=== PATIENT | female | born 1985 | race African-American/Black ===

== ENCOUNTER 2017-04-25 01:22 | Emergency (ER) | payer MEDICAID ==
[~2017-04-25] VITALS: Ht 162.6 cm; Wt 52.0 kg
[~2017-04-25 01:22] MED LIST: IRON; PRENATAL
[2017-04-25] MEDS ORDERED: KETOROLAC 30MG/ML VIAL IV STA (01:45)
[2017-04-25] MEDS ORDERED: SODIUM CHLORIDE 0.9% 1,000 ML IV ONE (01:45)
[2017-04-25] MEDS ORDERED: MORPHINE SULFATE 4 MG/ML CPJ (NOT FOR IM USE) IV STA (01:45)
[2017-04-25 02:10] LABS: BASOPHILS % 0.4 % (0.0-2.0); EOSINOPHILS % 1.3 % (0.0-5.0); HCG SCREEN NEGATIVE; HEMATOCRIT. 38.3 % (36.0-48.0); HEMOGLOBIN. 12.6 g/dL (12.0-16.0); LYMPHOCYTES % 29.1 % (20.0-50.0); MEAN CORPUSCULAR HEMOGLOBIN 31.4 pg (28.0-32.0); MEAN CORPUSCULAR VOLUME 95.2 fL (81.0-99.0); MEAN PLATELET VOLUME 9.8 fl (7.4-10.4); MONOCYTES % 7.6 % (2.0-8.0); NEUTROPHILS % 61.6 % (40.0-76.0); PLATELET 180 x1000/uL (130-400); RED BLOOD CELL COUNT 4.02 mill/uL (4.2-5.4); RED CELL DISTRIBUTION WIDTH 14.7 % (11.6-14.6)
[2017-04-25 02:11] LABS: CHLORIDE 104 mEq/L (98-107)
[2017-04-25 02:12] LABS: INR 1.3; PROTHROMBIN TIME 13.3 sec (9.4-11.6)
[2017-04-25] MEDS ORDERED: ONDANSETRON HCL 4MG/2ML VIAL IV ONE (02:15)
[2017-04-25 02:19] LABS: CARBON DIOXIDE 24 mEq/L (21-32)
[2017-04-25 02:41] LABS: CLARITY URINE CLEAR (CLEAR); COLOR URINE YELLOW (YELLOW); KETONES URINE 1+ (NEGATIVE); LEUKOCYTE ESTERASE URINE TRACE (NEGATIVE); NITRITE URINE NEGATIVE (NEGATIVE); OCCULT BLOOD URINE 2+ (NEGATIVE); PROTEIN URINE NEGATIVE (NEGATIVE); SPECIFIC GRAVITY URINE 1.029 (1.005-1.030)
[2017-04-25] MEDS ORDERED: CEFTRIAXONE 1 G PREMIX 50 ML IV SCH (03:30)
[2017-04-25 05:34] VITALS: BP 88/53
== END 2017-04-25 06:26 | disposition home or self-care (01) ==
LOC: ER 01:22
DX: N20.2 Calculus of kidney with calculus of ureter (principal); N39.0 Urinary tract infection, site not specified; F17.200 Nicotine dependence, unspecified, uncomplicated; F12.10 Cannabis abuse, uncomplicated
CPT/HCPCS: 36415; 71045; 74176; 80053; 81001; 83690; 84702; 84703; 85025; 85610; 96361; 96365; 96375; 99285; J0696; J1885; J2270; J2405; J7030

== ENCOUNTER 2017-04-27 01:35 | Emergency (ER) | payer MEDICAID ==
[~2017-04-27] VITALS: Ht 154.9 cm; Wt 54.5 kg
[2017-04-27] MEDS ORDERED: ONDANSETRON HCL 4MG/2ML VIAL IV STA (02:01)
[2017-04-27] MEDS ORDERED: KETOROLAC 30MG/ML VIAL IV STA (02:01)
[2017-04-27] MEDS ORDERED: SODIUM CHLORIDE 0.9% 1,000 ML IV ONE (02:01)
[2017-04-27 02:19] LABS: BASOPHILS % 0.2 % (0.0-2.0); EOSINOPHILS % 0.3 % (0.0-5.0); HEMATOCRIT. 32.6 % (36.0-48.0); LYMPHOCYTES % 9.3 % (20.0-50.0); MEAN CORPUSCULAR HEMOGLOBIN 31.7 pg (28.0-32.0); MONOCYTES % 6.5 % (2.0-8.0); NEUTROPHILS % 83.7 % (40.0-76.0); PLATELET 140 x1000/uL (130-400); RED BLOOD CELL COUNT 3.47 mill/uL (4.2-5.4); RED CELL DISTRIBUTION WIDTH 14.6 % (11.6-14.6)
[2017-04-27 02:22] LABS: CHLORIDE 107 mEq/L (98-107)
[2017-04-27 02:23] LABS: INR 1.1; PROTHROMBIN TIME 11.7 sec (9.4-11.6)
[2017-04-27 02:42] LABS: CLARITY URINE CLOUDY (CLEAR); COLOR URINE YELLOW (YELLOW); KETONES URINE 2+ (NEGATIVE); LEUKOCYTE ESTERASE URINE NEGATIVE (NEGATIVE); NITRITE URINE NEGATIVE (NEGATIVE); OCCULT BLOOD URINE NEGATIVE (NEGATIVE); PH URINE 7.5 (4.5-8.0); PROTEIN URINE NEGATIVE (NEGATIVE); SPECIFIC GRAVITY URINE 1.026 (1.005-1.030); UROBILINOGEN URINE 0.2 E.U./dL (0.2-1.0)
[2017-04-27] MEDS ORDERED: IBUPROFEN 600MG TABLET PO ONE (06:45)
[2017-04-27 07:03] VITALS: BP 95/55
== END 2017-04-27 07:00 | disposition home or self-care (01) ==
LOC: ER 01:35
DX: N13.2 Hydronephrosis with renal and ureteral calculous obstruction (principal); F12.90 Cannabis use, unspecified, uncomplicated; F17.210 Nicotine dependence, cigarettes, uncomplicated
CPT/HCPCS: 36415; 74176; 80053; 81001; 81025; 85025; 85610; 96361; 96374; 96375; 99285; J1885; J2405; J7030; Z7610